=== PATIENT | female | born 1945 | race Caucasian/White ===

== ENCOUNTER 2023-01-31 21:07 | Inpatient (IN) | payer OTHER ==
[~2023-01-31] VITALS: Ht 160 cm; Wt 49.9 kg
[~2023-01-31 21:07] MED LIST: ASPI-1457 PO; CHOL200026 PO; CIPR-260 PO; LORA0.5T PO; LORA10TA68 PO; MEMA10TA56 PO; MONT-40 PO; MULT-1159 PO; PRO40 PO; TRIA15CR3; VALP250C3 PO; [UNRECOGNIZED DRUG - CODE] PO
[2023-01-31] MEDS ORDERED: MORPHINE 4 MG INJ. 4 MG/ML VIAL IVP ONE ×3 (21:30→23:45)
[2023-01-31 21:59] VITALS: BP_SYST 163
[2023-01-31] MEDS ORDERED: LIP10 PO (22:11)
[2023-01-31] MEDS ORDERED: INSU100V9 SQ (22:19)
[2023-01-31] MEDS ORDERED: DONE10TA44 PO (22:19)
[2023-01-31] MEDS ORDERED: MONT-47 PO (22:19)
[2023-01-31] MEDS ORDERED: LOSA100T4 PO (22:19)
[2023-01-31] MEDS ORDERED: MEMA10PO PO (22:19)
[2023-01-31 23:59] LABS: BASOPHILS % (AUTO) 0.4 % (0.0-2.0); EOSINOPHILS % (AUTO) 0.1 % (0.0-4.0); HEMATOCRIT 36.5 % (36-48); HEMOGLOBIN 12.2 g/dL (12.0-16.0); LYMPHOCYTES # (AUTO) 1.9 K/uL (1.0-5.5); LYMPHOCYTES % (AUTO) 16.5 % (20.5-51.5); MEAN CORPUSCULAR HEMOGLOBIN 30 pg (27-31); MEAN CORPUSCULAR HGB CONC 34 % (32-36); MEAN CORPUSCULAR VOLUME 91 fL (79.0-98.0); MONOCYTES # (AUTO) 0.9 K/uL (0.0-1.0); MONOCYTES % (AUTO) 7.6 % (1.7-9.3); NEUTROPHILS # (AUTO) 8.7 K/uL (1.8-7.7); NEUTROPHILS % (AUTO) 75.4 % (40.0-70.0); PLATELET COUNT (AUTO) 243 K/uL (130-430); RED BLOOD CELL COUNT(AUTO) 4.03 MIL/uL (4.2-6.2); RED CELL DISTRIBUTION WIDTH 14.3 % (9.0-15.0); WHITE BLOOD COUNT (AUTO) 11.5 K/uL (4.8-10.8)
[2023-02-01 00:11] LABS: ANION GAP 4 (5-15); CALCIUM 8.8 mg/dL (8.4-11.0); CHLORIDE 101 mmol/L (98-107); CREATININE 0.62 mg/dL (0.55-1.30); GLUCOSE 212 mg/dL (70-99); UREA NITROGEN, BLOOD 14 mg/dL (8-21)
[2023-02-01] MEDS ORDERED: NALOXONE HCL 0.4 MG/ML AMP (NARCAN) IVP PRN (00:15)
[2023-02-01] MEDS ORDERED: DEXTROSE 50% JECT 50 ML DISP.SYRIN IVP PRN (00:15)
[2023-02-01] MEDS ORDERED: D5/0.45 NS 1,000 ML IV SCH (00:15)
[2023-02-01] MEDS ORDERED: ONDANSETRON HCL 4 MG/2 ML VIAL IVP PRN (00:15)
[2023-02-01 00:18] LABS: ALANINE AMINOTRANSFERASE 28 U/L (12-78); ASPARTATE AMINOTRANSFERASE 17 U/L (10-37); TOTAL BILIRUBIN 0.5 mg/dL (0.0-1.0)
[2023-02-01 00:20] LABS: PROTHROMBIN TIME 10.6 SECS (9.5-12.5)
[2023-02-01] MEDS ORDERED: MORPHINE 4 MG INJ. 4 MG/ML VIAL IVP ONE ×3 (00:45→04:30)
[2023-02-01] MEDS ORDERED: MORPHINE 2 MG/ML INJ. SYRINGE ONE (01:28)
[2023-02-01] MEDS ORDERED: LORazepam 2 MG/ML VIAL IVP ONE (04:30)
--- NOTE | 2023-02-01 04:48 | NUR ---
Received patient from EMT, is confused, yelling due to pain. s/[place] fall [place] [facility]. Right leg is shorter than left leg. x-ray is done, sinus rhythm on the monitor, placed #20 gauge at right a/c. Positive fracture of the right hip. morphine 4mg ivp x4 given, and ativan 1mg ivp given, vital sign is stable, d51/2 nss runs at 100ml/hour. patient tolerated well. Awaiting for admission bed.
[2023-02-01] MEDS: INSULIN REGULAR, HUMAN 100 UNITS/ML, 3 ML VIAL (humuLIN R) SUBCUT PRN (06:53)
--- NOTE | 2023-02-01 07:00 | NUR ---
ER at bedside examining patient.
--- NOTE | 2023-02-01 07:32 | NUR ---
MRSA SWAB COLLECTED AND SENT TO LAB.
--- NOTE | 2023-02-01 07:34 | NUR ---
Admit bed requested Patient will be admitted to care of . Admitted to TELEMETRY unit. Diagnosis R HIP FRACTURE Inpatient (Yes or No) Y Observation (Yes or No) N Orientation concerns or request close to nursing station (Yes or No) Y Covid Status PENDING On vent or bipap N Isolation requirements N Needs a sitter N From Home (Yes or if No enter name of facility) [facility] Requires Dialysis (Yes or No) N Med Rec Completed (Yes of No) Y
--- NOTE | 2023-02-01 08:30 | NUR ---
COVID SWAB COLLECTED AND SENT TO LAB.
--- NOTE | 2023-02-01 08:55 | NUR ---
ER at bedside examining patient.
[2023-02-01] MEDS: MEMANTINE HCL 5 MG TABLET PO SCH ×2 (09:00→21:00)
[2023-02-01] MEDS: VALPROIC ACID 250 MG CAPSULE (DEPAKENE) PO SCH ×2 (09:00→21:00)
[2023-02-01] MEDS ORDERED: MEMANTINE HCL PO SCH (09:00)
--- NOTE | 2023-02-01 09:01 | NUR ---
Hill 16 luxembourgish # 16 FR Hill catheter with use of sterile technique. Immediate return of 20 cc yellow urine noted. Bedside drainage bag placed below level of bladder. Urine sample collected and sent to lab. Pt tolerated procedure well. Patient arrived with hill in place, changed due to standard of practice prior to admission. Patient unable to toilet self.
[2023-02-01] MEDS ORDERED: NACL 0.9% 1,000 ML IV SCH (09:15)
--- NOTE | 2023-02-01 09:15 | NUR ---
PT ASLEEP WITH PAIN CONTROLLED AT THIS TIME. UNABLE TO MEDICATE 0900 MEDS.
[2023-02-01] MEDS: MORPHINE 2 MG/ML INJ. SYRINGE IVP PRN (10:14)
--- NOTE | 2023-02-01 11:00 | NUR ---
ACCUCHECK: Blood sugar 79 running Dextrose.
--- NOTE | 2023-02-01 11:23 | NUR ---
Radiology bedside in room
[2023-02-01 12:00] VITALS: BP_SYST 167
--- NOTE | 2023-02-01 12:11 | NUR ---
Patient will be admitted to [facility]. Admitted to TELE unit. Will go to room 125 A. Belongings list completed. Complete and up to date summary report printed. SBAR report to be given at bedside with opportunity for questions.
--- NOTE | 2023-02-01 12:15 | NUR ---
Admit to unit Patient is Aox1. Confused. Arrived to room via gurney, from ER. No ss of acute respiratory distress noted. Breathing is even and nonlabored, on room air. Vital signs obtained, as documented. No SOB noted. No facial grimace noted. Patient denies severe pain. Hassan catheter in place, draining yellow urine, by gravity. Patient oriented to room and call light. Bed is locked, alarm on, and at lowest position. Call light within reach. Addendum: 02/01/23 at 1625 by Angeles Sousa LVN Admit to unit Patient is Aox1. Confused. Arrived to room via gurney, from ER. No ss of acute respiratory distress noted. Breathing is even and nonlabored, on room air. Vital signs obtained, as documented. No SOB noted. No facial grimace noted. Patient denies severe pain. Hassan catheter in place, draining yellow urine, by gravity. IV patent. Patient oriented to room and call light. Bed is locked, alarm on, and at lowest position. Call light within reach.
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
--- NOTE | 2023-02-01 13:00 | NUR ---
SONIA Daughter Vivienne Domínguez. Can call SONIA at [phone].
[2023-02-01] MEDS: MULTIVITS,CA,MINERALS/IRON/FA 1 TABLET PO SCH (14:42)
[2023-02-01] MEDS: DONEPEZIL HCL 5 MG TABLET (ARICEPT) PO SCH (14:42)
[2023-02-01] MEDS: ATORVASTATIN 10 MG TABLET PO SCH (14:42)
[2023-02-01] MEDS: PANTOPRAZOLE SODIUM 40 MG TAB PO SCH (14:43)
[2023-02-01] MEDS: CHOLECALCIFEROL (VITAMIN D3) 2,000 UNIT TABLET PO SCH (14:43)
[2023-02-01] MEDS: MONTELUKAST 10 MG TABLET PO SCH (14:44)
[2023-02-01 16:00] VITALS: BP_SYST 134
[2023-02-01 16:05] LABS: BILIRUBIN,URINE NEGATIVE (NEGATIVE); BLOOD, URINE NEGATIVE (NEGATIVE); CLARITY/URINE CLEAR (CLEAR); COLOR,URINE YELLOW (YELLOW); GLUCOSE,URINE 1+ (NEGATIVE); KETONES,URINE NEGATIVE (NEGATIVE); LEUKOCYTE ESTERASE ,URINE NEGATIVE (NEGATIVE); NITRITE, URINE NEGATIVE (NEGATIVE); PH,URINE 6.5 (5.0-8.0); PROTEIN URINE NEGATIVE (NEGATIVE); UROBILINOGEN,URINE 0.2 (0.2-1.0)
--- NOTE | 2023-02-01 16:23 | NUR ---
Notes Patient is resting, eyes closed. No ss of distress noted. No facial grimace. breathing is even and nonlabored, room air. Hassan cath draining by gravity. Bed locked, alarm on, and at lowest position. Call light within reach.
[2023-02-01] MEDS: D5/0.45 NS 1,000 ML IV SCH (18:15)
[2023-02-01] MEDS: MORPHINE 4 MG INJ. 4 MG/ML VIAL IVP PRN (18:23)
--- NOTE | 2023-02-01 18:48 | NUR ---
Closing Notes patient is resting, eyes closed. Breathing is even and nonlabored, on room air. No ss of distress noted. No SOB noted. No facial grimace noted at this time. Nurse tried multiple times to assist patient to eat dinner, patient continued to refused. IVF running. Iv patent. Patient is stable. All needs met. Hassan catheter draining yellow urine, by gravity. Bed locked, alarm on, and at lowest position. Call light within reach.
--- NOTE | 2023-02-01 19:30 | NUR ---
OPENING NOTES Patient resting in bed no s/s pain or distress noted. Respirations even and unlabored - head of bed elevated. IV site patent no s/s redness infection or infiltration. Bed locked and in lowest position. Call light within reach.
[2023-02-01 20:00] VITALS: BP_SYST 136
--- NOTE | 2023-02-01 21:23 | NUR ---
patient rips out iv
--- NOTE | 2023-02-01 23:00 | NUR ---
new iv inserted rfa 22g
[2023-02-02] VITALS: BP_SYST 113
[2023-02-02] MEDS: MORPHINE 4 MG INJ. 4 MG/ML VIAL IVP PRN (02:40)
[2023-02-02] MEDS: D5/0.45 NS 1,000 ML IV SCH (06:00)
[2023-02-02] MEDS: INSULIN REGULAR, HUMAN 100 UNITS/ML, 3 ML VIAL (humuLIN R) SUBCUT PRN ×2 (06:38→20:33)
[2023-02-02 06:45] LABS: BASOPHILS % (AUTO) 0.5 % (0.0-2.0); EOSINOPHILS % (AUTO) 0.3 % (0.0-4.0); HEMATOCRIT 36.6 % (36-48); HEMOGLOBIN 12.3 g/dL (12.0-16.0); LYMPHOCYTES # (AUTO) 1.8 K/uL (1.0-5.5); LYMPHOCYTES % (AUTO) 20.6 % (20.5-51.5); MEAN CORPUSCULAR HEMOGLOBIN 31 pg (27-31); MEAN CORPUSCULAR HGB CONC 34 % (32-36); MEAN CORPUSCULAR VOLUME 91 fL (79.0-98.0); MONOCYTES # (AUTO) 0.8 K/uL (0.0-1.0); MONOCYTES % (AUTO) 8.6 % (1.7-9.3); NEUTROPHILS # (AUTO) 6.2 K/uL (1.8-7.7); PLATELET COUNT (AUTO) 223 K/uL (130-430); RED CELL DISTRIBUTION WIDTH 14.1 % (9.0-15.0); WHITE BLOOD COUNT (AUTO) 8.8 K/uL (4.8-10.8)
--- NOTE | 2023-02-02 07:46 | NUR ---
OPENING NOTE RECEIVED SBAR FROM NIGHT RN. PATIENT IN BED, RESPIRATIONS EVEN, NON LABORED, BED IN LOW AND LOCKED POSITION CALL LIGHT WITHIN REACH BED ALARM ON. PATIENT PULLING ON TELE MONITOR, NOT ON AT THIS TIME, NOVOA DRAINING BY GRAVITY. IV NOT RUNNING PER HEAD BOYS GOLF COACH PATIENT HAS BEEN PULLING ON IV
[2023-02-02 07:50] LABS: ANION GAP 4 (5-15); CALCIUM 8.5 mg/dL (8.4-11.0); CHLORIDE 97 mmol/L (98-107); GLUCOSE 283 mg/dL (70-99); HCG,QUANTITATIVE 0 mIU/ML (0-6); UREA NITROGEN, BLOOD 8 mg/dL (8-21)
[2023-02-02 08:00] VITALS: BP_SYST 148
--- NOTE | 2023-02-02 08:14 | NUR ---
CLOSING NOTES Patient resting in bed no s/s pain or distress noted. Respirations even and unlabored - head of bed elevated. IV site patent no s/s redness infection or infiltration. Bed locked and in lowest position. Call light within reach. patient cleaned linens changed
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
--- NOTE | 2023-02-02 08:30 | NUR ---
CALLED DR VEGA FOR RESTRAINT ORDER, NO ANSWER WILL CALL AGAIN
--- NOTE | 2023-02-02 08:39 | NUR ---
FAMILY INFORMED DIANE DAUGHTER THAT PATIENT HAS BEEN PLACED ON RESTRAINTS. ANSWERED ALL QUESTIONS, DAUGHTER VERBALIZED UNDERSTANDING
[2023-02-02] MEDS: CHOLECALCIFEROL (VITAMIN D3) 2,000 UNIT TABLET PO SCH (09:00)
[2023-02-02] MEDS: MONTELUKAST 10 MG TABLET PO SCH (09:00)
[2023-02-02] MEDS: VALPROIC ACID 250 MG CAPSULE (DEPAKENE) PO SCH ×2 (09:00→20:16)
[2023-02-02] MEDS: MULTIVITS,CA,MINERALS/IRON/FA 1 TABLET PO SCH (09:00)
[2023-02-02] MEDS: ATORVASTATIN 10 MG TABLET PO SCH (09:00)
[2023-02-02] MEDS: MEMANTINE HCL 5 MG TABLET PO SCH ×2 (09:00→20:16)
[2023-02-02] MEDS: PANTOPRAZOLE SODIUM 40 MG TAB PO SCH (09:00)
[2023-02-02] MEDS: DONEPEZIL HCL 5 MG TABLET (ARICEPT) PO SCH (09:00)
--- NOTE | 2023-02-02 10:11 | NUR ---
INFORMED DR VEGA THAT PATIENT IS COMBATIVE, PULLING AT IV AND NOVOA CATHETER. NEW ORDERS RECEIVED
[2023-02-02] MEDS ORDERED: LORazepam 2 MG/ML VIAL IVP PRN (10:15)
--- NOTE | 2023-02-02 11:00 | NUR ---
IV PATIENT REMOVED IV, IV RE-INSERTION: Restarted on LEFT WRIST Successful after 2 attempts. Resumed current IVF. Will observe for any signs of infiltration.
[2023-02-02 11:35] VITALS: BP_SYST 142
[2023-02-02] MEDS: MORPHINE 2 MG/ML INJ. SYRINGE IVP PRN (11:41)
--- NOTE | 2023-02-02 13:00 | NUR ---
IV PATIENT PULLED IV OUT IV RE-INSERTION: Restarted on LEFT FOREARM. Successful after 1 attempts. 22G. FLUSHED FREELY.
[2023-02-02] MEDS ORDERED: KETOROLAC TROMETHAMINE 30 MG VIAL ONE (13:48)
[2023-02-02] MEDS ORDERED: SEVOFLURANE 15 MIN GAS INH ONE (13:48)
[2023-02-02] MEDS ORDERED: NS IRRIG SOLN 1000 ML IR ONE (13:48)
[2023-02-02] MEDS ORDERED: CEFAZOLIN 2 GM IVPB PREMIX 50 ML IV ONE (13:48)
[2023-02-02] MEDS ORDERED: ONDANSETRON HCL 4 MG/2 ML VIAL ONE (13:48)
[2023-02-02] MEDS ORDERED: PROPOFOL 200MG/ 20ML VIAL (DIPRIVAN) IV ONE (13:48)
[2023-02-02] MEDS ORDERED: NS 1000 ML IV.SOLN IV ONE (13:48)
[2023-02-02] MEDS ORDERED: BUPIVACAINE /EPINEPHRINE/PF 0.5% 30 ML VIAL INJ ONE (13:48)
--- NOTE | 2023-02-02 13:49 | NUR ---
OR LEFT FOR OR VIA BED 2 DAUGHTERS ACCOMPANIED PATIENT
[2023-02-02] MEDS ORDERED: MIDAZOLAM HCL 5 MG/5 ML VIAL IVP PRN (14:30)
[2023-02-02] MEDS ORDERED: KETOROLAC TROMETHAMINE 30 MG VIAL IVP PRN (14:30)
[2023-02-02] MEDS ORDERED: NALOXONE HCL 0.4 MG/ML AMP (NARCAN) IVP PRN (14:30)
[2023-02-02] MEDS ORDERED: hydrALAZINE HCL 20 MG/ML VIAL IVP PRN (14:30)
[2023-02-02] MEDS ORDERED: METOCLOPRAMIDE HCL 10 MG/2 ML VIAL IVP PRN (14:30)
[2023-02-02] MEDS ORDERED: HYDROmorphone 1 MG/ML INJ. CARTRIDGE IVP PRN (14:30)
[2023-02-02] MEDS: HYDROmorphone 1 MG/ML INJ. CARTRIDGE ONE ×2 (15:30→15:45)
--- NOTE | 2023-02-02 16:09 | NUR ---
pt referrals faxed to [facility] phone#[phone].
--- NOTE | 2023-02-02 16:40 | NUR ---
Returned from OR patient returned from OR. Obtained VS. Respirations even, non labored, bed in low and locked position, call light within reach, bed alarm on. IVF's running as ordered. Dressing clean , dry, intact. Family bedside.
[2023-02-02] MEDS: D5LR 1,000 ML IV SCH (17:52)
[2023-02-02] MEDS: QUEtiapine FUMARATE 25 MG TABLET PO SCH (18:00)
--- NOTE | 2023-02-02 18:09 | NUR ---
SPOKE WITH DR VEGA REGARDING PATIENTS DAUGHTER NOTED THAT PATIENTS FRONT TOOTH IS DISCOLORED. THEY ARE AFRAID THAT THE PATIENT MAY HAVE DONE SOMETHING TO IT WHEN SHE FELL. NEW ORDERS RECEIVED
--- NOTE | 2023-02-02 19:20 | NUR ---
CLOSING NOTE PROVIDE SBAR TO NIGHT RN. PATIENT IN BED, RESPIRATIONS EVEN, NON LABORED, BED IN LOW AND LOCKED POSITION, CALL LIGHT WITHIN REACH, BED ALARM ON. BI LAT WRIST RESTRAINTS IN PLACE AND NO SIGNS OF SKIN BREAK DOWN. ENDORSED TO NIGHT RN INCENTIVE SPIROMETER AND APPLYING SCDS. PATIENT TO HAVE CT OF FACE TOMORROW. ENDORSED CARE TO NIGHT RN.
--- NOTE | 2023-02-02 19:30 | NUR ---
Opening Notes: Pt is laying in bed. Pt is mumbling words, AOx1. Respirations are even an unlabored. No signs and symptoms of pain or distress. Soft wrist bilateral restraints noted. Hassan catheter in place. Continuous fluids running at ordered rate. Safety precations are in place. Bed in low position, bed alarm on, call light within reach.
[2023-02-02 20:00] VITALS: BP_SYST 148
[2023-02-02] MEDS: ceFAZolin SODIUM 2 GM in D5W 100 ML IV SCH (21:35)
[2023-02-03] VITALS: BP_SYST 135
[2023-02-03 00:02] VITALS: BP_SYST 148
--- NOTE | 2023-02-03 00:15 | NUR ---
Rounding Note: Pt is laying in bed with eyes closed. Respirations are even and unlabored. No signs and symptoms of acute distress. Fall and safety checks in place. Bed in low position, call light in place.
[2023-02-03] MEDS: MORPHINE 2 MG/ML INJ. SYRINGE IVP PRN (01:23)
--- NOTE | 2023-02-03 03:00 | NUR ---
Rounding notes: Pt is lying in bed, calm with eyes closed. Respirations are even and labored. No signs and symptoms of pain or distress. Patient is kept clean and dry.
[2023-02-03] MEDS: INSULIN REGULAR, HUMAN 100 UNITS/ML, 3 ML VIAL (humuLIN R) SUBCUT PRN ×4 (06:28→21:59)
[2023-02-03] MEDS: ceFAZolin SODIUM 2 GM in D5W 100 ML IV SCH ×2 (06:48→14:02)
[2023-02-03] MEDS: D5LR 1,000 ML IV SCH ×2 (06:50→22:21)
--- NOTE | 2023-02-03 06:52 | NUR ---
Closing Note: Patient awake and laying in bed. No signs and symptoms of pain or distress noted. Respirations even and unlabored. IV site patent, no redness or signs and symptoms of infection or infiltration. Bilateral restraints noted. Hassan catheter in place. Bed locked and in lowest position. Call light within reach.
[2023-02-03 07:36] VITALS: BP_SYST 143
[2023-02-03 07:39] LABS: BASOPHILS % (AUTO) 0.2 % (0.0-2.0); EOSINOPHILS % (AUTO) 0.2 % (0.0-4.0); HEMATOCRIT 31.8 % (36-48); HEMOGLOBIN 10.8 g/dL (12.0-16.0); LYMPHOCYTES # (AUTO) 1.1 K/uL (1.0-5.5); LYMPHOCYTES % (AUTO) 11.2 % (20.5-51.5); MEAN CORPUSCULAR HEMOGLOBIN 31 pg (27-31); MEAN CORPUSCULAR HGB CONC 34 % (32-36); MEAN CORPUSCULAR VOLUME 91 fL (79.0-98.0); MONOCYTES # (AUTO) 0.6 K/uL (0.0-1.0); MONOCYTES % (AUTO) 5.6 % (1.7-9.3); NEUTROPHILS # (AUTO) 8.3 K/uL (1.8-7.7); NEUTROPHILS % (AUTO) 82.8 % (40.0-70.0); PLATELET COUNT (AUTO) 195 K/uL (130-430); RED BLOOD CELL COUNT(AUTO) 3.48 MIL/uL (4.2-6.2); RED CELL DISTRIBUTION WIDTH 14.1 % (9.0-15.0); WHITE BLOOD COUNT (AUTO) 10.1 K/uL (4.8-10.8)
--- NOTE | 2023-02-03 07:40 | NUR ---
Opening Nurse Notes: Patient laying in bed with bilateral restraints, no restraint distress. A/O x 1, Yi speaking. Patient breathing even and unlabored on room air. No pain, no distress, no SOB. Patient is on a puree diet and requires assistance. Patient has LFA 22g. Patient is bedbound with Hassan draining yellow urine to gravity. Bed is locked in lowest position. Call light within reach, all needs met, will continue with plan of care.
[2023-02-03 07:53] LABS: ANION GAP 6 (5-15); CALCIUM 8.2 mg/dL (8.4-11.0); CHLORIDE 100 mmol/L (98-107); CREATININE 0.63 mg/dL (0.55-1.30); GLUCOSE 311 mg/dL (70-99); UREA NITROGEN, BLOOD 7 mg/dL (8-21)
[2023-02-03] MEDS: CHOLECALCIFEROL (VITAMIN D3) 2,000 UNIT TABLET PO SCH (08:13)
[2023-02-03] MEDS: MEMANTINE HCL 5 MG TABLET PO SCH ×2 (08:14→21:53)
[2023-02-03] MEDS: DONEPEZIL HCL 5 MG TABLET (ARICEPT) PO SCH (08:14)
[2023-02-03] MEDS: VALPROIC ACID 250 MG CAPSULE (DEPAKENE) PO SCH ×2 (08:14→21:52)
[2023-02-03] MEDS: PANTOPRAZOLE SODIUM 40 MG TAB PO SCH (08:15)
[2023-02-03] MEDS: MONTELUKAST 10 MG TABLET PO SCH (08:15)
[2023-02-03] MEDS: ATORVASTATIN 10 MG TABLET PO SCH (08:15)
[2023-02-03] MEDS: MULTIVITS,CA,MINERALS/IRON/FA 1 TABLET PO SCH (08:16)
--- NOTE | 2023-02-03 08:30 | NUR ---
Nurse Notes: Dr. Kearns at bedside consulting.
--- NOTE | 2023-02-03 11:14 | NUR ---
DC plan to SNF. CM page Dr Patel regarding IV abx frequency.
--- NOTE | 2023-02-03 12:00 | NUR ---
Noon Nurse Notes: Patient laying in bed with bilateral restraints, no restraint distress. Patient breathing even and unlabored on room air. No pain, no distress, no SOB. Hassan draining yellow urine to gravity. Bed is locked in lowest position. Call light within reach, all needs met, will continue with plan of care.
[2023-02-03 12:29] VITALS: BP_SYST 142
[2023-02-03] MEDS ORDERED: VITD2000 PO (13:44)
--- NOTE | 2023-02-03 14:15 | NUR ---
MATY reached out to [facility] to see if they can take the patient on PO seroquel. Ely states they can. will fax dc referral
--- NOTE | 2023-02-03 15:29 | NUR ---
Nurse Notes: Ely from [facility] came by bedside to see patient. Noted that 2 beds will be available at facility tomorrow and 1 more on Wednesday.
--- NOTE | 2023-02-03 15:45 | NUR ---
DC referral packet faxed to [facility] f# [phone]
--- NOTE | 2023-02-03 15:51 | NUR ---
ELEVATED TEMP Patient noted to have temp of 99.4 cooling measures done and reported to MD Cowan. ordered new PRN of Tylenol for TEMP. Orders carried out.
[2023-02-03] MEDS ORDERED: ACETAMINOPHEN 325 MG TABLET PO PRN (16:00)
--- NOTE | 2023-02-03 16:00 | NUR ---
Afternoon Nurse Notes: Patient laying in bed with bilateral restraints, no restraint distress. Patient breathing even and unlabored on room air. No pain, no distress, no SOB. Hassan draining clear/yellow urine to gravity. Bed is locked in lowest position. Call light within reach, all needs met, will continue with plan of care.
--- NOTE | 2023-02-03 16:41 | NUR ---
[facility] waiting for bed [facility]
--- NOTE | 2023-02-03 16:53 | NUR ---
MD Jorge Patel at bedside assessing surgery site. reapplied glue and redressed the surgical incisions. Ordered Lovenox one time today and then scheduled. also wanted PT for S/P SX Right Hip for tomorrow. Orders carried out.
[2023-02-03] MEDS ORDERED: ENOXAPARIN SODIUM 40 MG/0.4 ML SYRINGE SUBCUT ONE (17:00)
[2023-02-03 17:20] VITALS: BP_SYST 139
[2023-02-03] MEDS: QUEtiapine FUMARATE 25 MG TABLET PO SCH (18:11)
--- NOTE | 2023-02-03 18:45 | NUR ---
Closing Shift Nurse Notes: Patient laying in bed with bilateral restraints, no restraint distress. Patient breathing even and unlabored on room air. No pain, no distress, no SOB. Hassan draining yellow urine to gravity. Bed is locked in lowest position. Call light within reach, all needs met, evening report to be given to shift supervisor melting soon.
[2023-02-03 20:00] VITALS: BP_SYST 144
--- NOTE | 2023-02-03 21:00 | NUR ---
PT STATED SHE WAS ANXIOUS BUT NOT IN PAIN. PT CURRENTLY IN RESTRA9
--- NOTE | 2023-02-03 21:30 | NUR ---
PT STATED SHE WAS ANXIOUS BUT NOT IN PAIN. PT CURRENTLY IN RESTRAINTS. PT TO BE MEDICATED FOR ANXIETY. ALL OTHER NEEDS MEET AT THIS TIME
[2023-02-03] MEDS: INSULIN GLARGINE 100 UNITS/ML, 10 ML VIAL SUBCUT SCH (21:56)
[2023-02-04] VITALS: BP_SYST 148
[2023-02-04] MEDS: INSULIN REGULAR, HUMAN 100 UNITS/ML, 3 ML VIAL (humuLIN R) SUBCUT PRN ×3 (06:25→17:23)
[2023-02-04 07:20] VITALS: BP_SYST 131
--- NOTE | 2023-02-04 07:40 | NUR ---
Opening Nurse Notes: Patient laying in bed with bilateral restraints, no restraint distress. A/O x 1, Gibraltarian/Georgian speaking. Patient breathing even and unlabored on room air. No pain, no distress, no SOB. Patient is on a puree diet and requires assistance. Patient has LFA 22g. Patient is bedbound with Hassan draining yellow urine to gravity. Bed is locked in lowest position. Call light within reach, all needs met, will continue with plan of care.
[2023-02-04] MEDS: VALPROIC ACID 250 MG CAPSULE (DEPAKENE) PO SCH ×2 (08:09→21:40)
[2023-02-04] MEDS: PANTOPRAZOLE SODIUM 40 MG TAB PO SCH (08:09)
[2023-02-04] MEDS: MULTIVITS,CA,MINERALS/IRON/FA 1 TABLET PO SCH (08:11)
[2023-02-04] MEDS: MONTELUKAST 10 MG TABLET PO SCH (08:12)
[2023-02-04] MEDS: CHOLECALCIFEROL (VITAMIN D3) 2,000 UNIT TABLET PO SCH (08:12)
[2023-02-04] MEDS: ATORVASTATIN 10 MG TABLET PO SCH (08:12)
[2023-02-04] MEDS: MEMANTINE HCL 5 MG TABLET PO SCH ×2 (08:13→21:40)
[2023-02-04] MEDS: DONEPEZIL HCL 5 MG TABLET (ARICEPT) PO SCH (08:13)
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
[2023-02-04] MEDS ORDERED: ENOXAPARIN SODIUM 40 MG/0.4 ML SYRINGE SUBCUT ONE (12:00)
--- NOTE | 2023-02-04 12:00 | NUR ---
Noon Nurse Notes: Patient sleeping in bed. Patient breathing even and unlabored on room air. No pain, no distress, no SOB. Hassan draining yellow urine to gravity. Bed is locked in lowest position. Call light within reach, all needs met, will continue with plan of care.
--- NOTE | 2023-02-04 12:55 | NUR ---
MD Cowan Reported to MD Cowan that D5LR has been placed on hold due to patient blood sugars being elevated. ordered to stop D5LR. orders carried out.
[2023-02-04] MEDS: LR 1,000 ML IV SCH (15:00)
--- NOTE | 2023-02-04 15:00 | NUR ---
MD GARY Cowan put a discharge order when bed available, spoke with MD regarding the restraints and how the restraints have been off since 1130am today (02/04/23) stated he is aware of the 24 hour wait and said that the order was placed so it is ready for tomorrow. Will endorse to metaphysicist nurse.
--- NOTE | 2023-02-04 16:00 | NUR ---
Afternoon Nurse Notes: Patient laying in bed. Patient breathing even and unlabored on room air. No pain, no distress, no SOB. Hassan draining clear/yellow urine to gravity. Bed is locked in lowest position. Call light within reach, all needs met, will continue with plan of care.
--- NOTE | 2023-02-04 16:20 | NUR ---
Received a phone call from patient daughter Abiodun who stated that she had just finished touring [facility] wants to tour [facility] as she was told that her mom would not be on any seroquel anymore. Patient is a Medicare beneficiary and needed more than just 2 referrals for choice. CM suggested [facility] for patient to tour as well. Abiodun states she will tour [facility] as well and make her decision after that.
[2023-02-04] MEDS: QUEtiapine FUMARATE 25 MG TABLET PO SCH (17:23)
--- NOTE | 2023-02-04 18:35 | NUR ---
Closing Shift Nurse Notes: Patient laying in bed sleeping. Patient breathing even and unlabored on room air. No pain, no distress, no SOB. Hassan draining yellow urine to gravity. Bed is locked in lowest position. Call light within reach, all needs met, evening report to be given to night supervisor soon.
[2023-02-04 18:37] VITALS: BP_SYST 128
[2023-02-04 18:38] VITALS: BP_SYST 130
--- NOTE | 2023-02-04 18:51 | NUR ---
Discharge Nurse Notes: Vanna from [facility] called to determine when patient would be discharged. Vanna at [facility] It was determined that patient would be discharged in the morning to [facility].
--- NOTE | 2023-02-04 19:00 | NUR ---
Joel James Spoke with Vanna from [facility] and stated they will accept patient tomorrow 02/05/23. [facility] was called and set up pickup for 10am on 02/05/23
--- NOTE | 2023-02-04 21:40 | NUR ---
Med pass Pt asleep, easily awakens. Pt took pills crushed with chocolate pudding. Pt cooperative and off basilia restraints. Safety maintained.
[2023-02-04] MEDS: INSULIN GLARGINE 100 UNITS/ML, 10 ML VIAL SUBCUT SCH (21:47)
--- NOTE | 2023-02-04 23:30 | NUR ---
Daughter called Received call from pt's daughter Abiodun (POA). Updated with plan of care and transfer to [facility] tomorrow at 10AM. She is agreeable with the transfer.
[2023-02-05 00:06] VITALS: BP_SYST 140
[2023-02-05] MEDS: LR 1,000 ML IV SCH (06:06)
[2023-02-05 08:00] VITALS: BP_SYST 117
--- NOTE | 2023-02-05 08:00 | NUR ---
Note: Report received from shift production associate nurse Gabby. patient is sleeping. respond to tactile stimulate. Refusing to open her eyes and eat breakfast. Bed in the lowest position and side rails x3 up. call light in reach. bed alarm on and will continue patient care.
[2023-02-05] MEDS ORDERED: ENOXAPARIN SODIUM 40 MG/0.4 ML SYRINGE SUBCUT SCH (09:00)
[2023-02-05 11:01] VITALS: BP_SYST 117
--- NOTE | 2023-02-05 11:25 | NUR ---
Note: called and report to Joel James to nurse Jade. Transportation is here to pepper picker the patient.
[2023-02-05] MEDS: DONEPEZIL HCL 5 MG TABLET (ARICEPT) PO SCH (11:40)
[2023-02-05] MEDS: MULTIVITS,CA,MINERALS/IRON/FA 1 TABLET PO SCH (11:40)
[2023-02-05] MEDS: MEMANTINE HCL 5 MG TABLET PO SCH (11:40)
[2023-02-05] MEDS: MONTELUKAST 10 MG TABLET PO SCH (11:40)
[2023-02-05] MEDS: ATORVASTATIN 10 MG TABLET PO SCH (11:40)
[2023-02-05] MEDS: VALPROIC ACID 250 MG CAPSULE (DEPAKENE) PO SCH (11:40)
[2023-02-05] MEDS: PANTOPRAZOLE SODIUM 40 MG TAB PO SCH (11:40)
[2023-02-05] MEDS: CHOLECALCIFEROL (VITAMIN D3) 2,000 UNIT TABLET PO SCH (11:40)
--- NOTE | 2023-02-05 11:40 | NUR ---
PT TRANSFERRED Report given to Kalie at [facility]. Transfer packet with Transfer Orders and Medication Reconciliation form given to EMT with report. Exitcare provided. [facility] ID band removed, replaced with ID band with pt's name and . IV catheter saline lock sent with patent, intact and dressing applied. All belongings sent with patient. Patient left floor via gurney escorted by EMT in no distress. Hassan is emptied and draining.
[2023-02-05 11:50] VITALS: BP_SYST 133
== END 2023-02-05 11:40 | DRG 481 ==
LOC: SED 21:07 → STU 23:45 → SMU 02-03 16:22
PROVIDERS: ADMIT Internal Medicine; ATTEND Internal Medicine
PROC: 0QS806Z Reposition Right Femoral Shaft with Intramedullary Internal Fixation Device, Open Approach (ICD-10-PCS; principal; 2023-02-02 12:00)
DX: S72.141A Displaced intertrochanteric fracture of right femur, initial encounter for closed fracture (principal); E44.1 Mild protein-calorie malnutrition; Z68.1 Body mass index [BMI] 19.9 or less, adult; E87.1 Hypo-osmolality and hyponatremia; I10 Essential (primary) hypertension; G30.9 Alzheimer's disease, unspecified; F02.80 Dementia in other diseases classified elsewhere, unspecified severity, without behavioral disturbance, psychotic disturbance, mood disturbance, and anxiety; E78.5 Hyperlipidemia, unspecified; W18.39XA Other fall on same level, initial encounter; Z20.822 Contact with and (suspected) exposure to COVID-19; E11.9 Type 2 diabetes mellitus without complications; K21.9 Gastro-esophageal reflux disease without esophagitis; Z88.0 Allergy status to penicillin; Z88.2 Allergy status to sulfonamides; Z88.8 Allergy status to other drugs, medicaments and biological substances; Z79.899 Other long term (current) drug therapy; Z79.82 Long term (current) use of aspirin; Z79.4 Long term (current) use of insulin; Y93.89 Activity, other specified; Y92.89 Other specified places as the place of occurrence of the external cause; Y99.8 Other external cause status; Z98.891 History of uterine scar from previous surgery
CPT/HCPCS: 36415; 70486-TC; 71045; 72192-TC; 73502; 73552; 76000; 76376; 80048; 80053; 81003; 82962; 84702; 85025; 85610-TC; 85730-TC; 86886; 86900; 86901; 87081; 93005; 97110-GP; 97530-GP; 99285; G0378; J0690; J1170; J1650; J1815; J1885; J2060; J2270; J2405; J2704; J3490; J7030; J7060

== ENCOUNTER 2023-03-30 13:11 | Emergency (ER) | payer OTHER, BC ==
[~2023-03-30] VITALS: Ht 154.9 cm; Wt 68.0 kg
[~2023-03-30 13:11] MED LIST changes: +DONE10TA44 PO; +INSU100V9 SQ; +LIP10 PO; +LOSA100T4 PO; +MONT-47 PO; +VITD2000 PO
[2023-03-30 13:20] VITALS: BP_SYST 167
--- NOTE | 2023-03-30 13:25 | NUR ---
TO ROOM 8. UNABLE TO OBTAIN ACCOUNT OF EVENTS FROM [facility] [address] WAS DIRECTOR OPERATING ROOM ADDRESS. AMBULANCE COMPANY PRESENTS W/ WHAT APPEARS TO BE A URINARY CATHETER.
--- NOTE | 2023-03-30 13:26 | NUR ---
DR. CARRILLO AT BEDSIDE TO ASSESS PT.
--- NOTE | 2023-03-30 13:30 | NUR ---
RECEIVED PT FROM CASIMIRO RN PT GEORGINA VASQUEZS FROM HOSPICE DUE TO PULLING OUT NOVOA CATH. NO TRAUMA NOTED AT SITE. INSPECTED NOVOA BROUGTH IN BY PT AND THE ENTIRE NOVOA IS INTACT. SIDERAILS UP X2.
--- NOTE | 2023-03-30 14:00 | NUR ---
# 16 FR Hassan catheter with use of sterile technique. Immediate return of 200 cc LIGHT YELLOW urine noted. Bedside drainage bag placed below level of bladder. Urine sample collected and sent to lab. Pt tolerated procedure WELL.
[2023-03-30 14:20] LABS: BILIRUBIN,URINE NEGATIVE (NEGATIVE); COLOR,URINE YELLOW (YELLOW); GLUCOSE,URINE 3+ (NEGATIVE); KETONES,URINE NEGATIVE (NEGATIVE); LEUKOCYTE ESTERASE ,URINE TRACE (NEGATIVE); NITRITE, URINE NEGATIVE (NEGATIVE); PROTEIN URINE NEGATIVE (NEGATIVE)
[2023-03-30 14:23] LABS: BLOOD, URINE TRACE (NEGATIVE); CLARITY/URINE SLIGHTLY HAZY (CLEAR)
[2023-03-30 14:36] LABS: BACTERIA,URINE FEW /HPF (None Seen)
[2023-03-30] MEDS ORDERED: CIPR500T5 PO (14:43)
[2023-03-30 18:06] VITALS: BP_SYST 134
--- NOTE | 2023-03-30 18:15 | NUR ---
Patient given written and verbal discharge instructions and verbalizes understanding. ER MD discussed with patient the results and treatment provided. Patient in stable condition. ID arm band removed. Patient educated on pain management and to follow up with PMD. Pain Scale 0/10. Opportunity for questions provided and answered. Medication side effect fact sheet provided.
== END 2023-03-30 18:06 | disposition home or self-care (01) ==
LOC: SED 13:11
DX: Z46.6 Encounter for fitting and adjustment of urinary device (principal); N39.0 Urinary tract infection, site not specified; E11.9 Type 2 diabetes mellitus without complications; I10 Essential (primary) hypertension; K21.9 Gastro-esophageal reflux disease without esophagitis; Z88.0 Allergy status to penicillin; Z88.2 Allergy status to sulfonamides; Z88.8 Allergy status to other drugs, medicaments and biological substances; Z79.4 Long term (current) use of insulin; Z79.899 Other long term (current) drug therapy
CPT/HCPCS: 81000; 87086; 99284